=== PATIENT | female | born 1950 | race Caucasian/White ===

== ENCOUNTER 2021-09-24 13:56 | Outpatient (CLI) | payer MEDICARE, OTHER | END 2021-09-24 13:57 | disposition home or self-care (01) | LOC: SCSMRI 13:56 | PROVIDERS: ATTEND Anesthesiology Pain Medicine | DX: M47.22 Other spondylosis with radiculopathy, cervical region (principal); M48.02 Spinal stenosis, cervical region | CPT/HCPCS: 72141; 72146 ==

== ENCOUNTER 2022-01-14 09:13 | Outpatient (CLI) | payer MEDICARE, OTHER | END 2022-01-14 09:14 | disposition home or self-care (01) | LOC: NM 09:13 | PROVIDERS: ATTEND Anesthesiology Pain Medicine | DX: R07.81 Pleurodynia (principal); R94.8 Abnormal results of function studies of other organs and systems | CPT/HCPCS: 78306; A9503 ==

== ENCOUNTER 2022-01-28 07:35 | Outpatient (CLI) | payer MEDICARE, OTHER ==
[2022-01-28] MEDS ORDERED: Iopamidol 370 76% 100 ML VIAL ONE (15:25)
== END 2022-01-28 07:36 | disposition home or self-care (01) ==
LOC: CT 07:35
PROVIDERS: ATTEND Anesthesiology Pain Medicine
DX: M89.9 Disorder of bone, unspecified (principal)
CPT/HCPCS: 70470; 82565; Q9967